=== PATIENT | male | born 1970 | race African-American/Black ===

== ENCOUNTER → 2023-04-30 07:43 | Outpatient (CLI) | payer OTHER, SELFPAY ==
--- NOTE | 2023-04-30 08:01 | CA_ITS ---
APPROVED REPORT EXAM: Comprehensive 2D, Doppler, and color-flow Echocardiogram Environmental Health Officer: Isabel Booker CRT Ht: 5 ft 6 in Wt: 207lbs BSA: 2.03 BP: 124/84 mmHg Indications: Diabetes, Hypertension/HDD 2D Dimensions LVOT 2.09 cm (M/F) 1.5-2.5 LA Volume 63.40 mL LA Volume Index 30.50 mL/m2 (M/F) 16-34 M-Mode Dimensions RVDd 2.45 cm (0.9-2.6) LA Diam 3.43 cm (1.9-4.0) LVDd 5.08 cm (3.5-5.7) Ao Diam 3.73 cm (2.0-3.7) LVDs 3.34 cm (3.5-5.7) IVSd 1.09 cm (0.6-1.1) PWd 1.00 cm (0.6-1.1) EF (Teich) 63.00% FS 34.30% EDV (Teich) 122.70 mL TAPSE 2.66 (<1.7) ESV (Teich) 45.40 mL LV Diastology E Decel Time 177.00 (160-240 msec) E/A Ratio 1.45 MED E' 7.80 (< 7 cm/sec) MED A' 9.70 cm/s E'/MED E' Ratio 14.38 (>14) LAT E' 10.60 (<10 cm/sec) LAT A' 10.70 cm/s E/LAT E' Ratio 10.58 (>14) Aortic Valve AO Peak GR. 4.40 mmHg Mitral Valve MV A Velocity 77.00 (40-130 cm/s) E/A Ratio 1.45 MV Decel. Time 177.00 (160-240 ms) Pulmonary Valve PV Peak Velocity 130.00 (50-150 cm/s) Tricuspid Valve TR P. Velocity 254.00 cm/s RAP Estimate 10.00 mmHg RVSP 35.70 mmHg Left Ventricle The left ventricle is normal size. The left ventricular systolic function is normal. The left ventricular ejection fraction is within the normal range. There is normal left ventricular wall thickness. There is normal LV segmental wall motion. The left ventricular diastolic function is normal. LVEF is 55%. Right Ventricle The right ventricle is normal size. The right ventricular systolic function is normal. Atria The left atrium size is normal. The right atrium size is normal. There is no Doppler evidence of interatrial shunt. Aortic Valve The aortic valve opens well. There is no aortic valvular stenosis. Trace aortic regurgitation. Mitral Valve The mitral valve is normal in structure. No evidence of mitral valve stenosis. Trace mitral regurgitation. Tricuspid Valve The tricuspid valve leaflets are thin and pliable. Mild tricuspid regurgitation. RVSP is 25-30 mmHg. Pulmonic Valve The pulmonary valve is normal in structure. Trace pulmonic regurgitation. Great Vessels The aortic root is normal in size. The ascending aorta is normal in size. IVC is normal in size and collapses >50% with inspiration. Pericardium There is no pericardial effusion. Other Information Study Quality: Adequate Conclusion Normal biventricular systolic function No significant valvular disease Electronically signed by : Jennifer Richard, 05/02/2023 23:41:40
[2023-04-30 08:02] LABS: Microscopic, Urine URINE MICROSCOPIC (MICROSCOPIC)
[2023-04-30 09:21] LABS: Alanine Aminotransferase 28 U/L (12-78); Albumin Level 4.8 g/dl (3.5-5.0); Albumin/Globulin Ratio 1.7 (1.1-1.8); Alkaline Phosphatase 101 U/L (38-126); Anion Gap 14.6 mEq/L (5-15); Aspartate Amino Transferase 34 U/L (17-59); Bilirubin,Total 0.9 mg/dl (0.2-1.3); Blood Urea Nitrogen 14 mg/dl (9-20); Calcium 9.9 mg/dl (8.4-10.2); Carbon Dioxide 26 mmol/L (22.0-30.0); Chloride 106 mmol/L (98-107); Estimated Glomerular Filt Rate 78 ml/min (>60); GFR (African American) 95 ML/MIN (>60); Globulin 2.9 g/dL (1.3-3.2); Glucose 190 mg/dl (74-100); Potassium 4.6 mmoL/L (3.5-5.1); Sodium 142 mmol/L (136-145); Total Protein,Serum 7.7 g/dl (6.3-8.2)
[2023-04-30 09:29] LABS: Appearance,Urine Clear (Clear); Bilirubin,Urine Negative (Negative); Blood, Urine Negative (Negative); Color,Urine Yellow (Yellow); Glucose,Urine (UA) Negative (Negative); Ketones,Urine Negative (Negative); Leukocyte Esterase,Urine Negative (Negative); Nitrate,Urine Negative (Negative); Protein,Urine Negative (Negative); Urobilinogen,Urine 0.2 EU/dl (0.2)
[2023-04-30 09:36] LABS: Bacteria,Urine Trace /lpf; Squamous Epithelial Cell,Urine Occasional #/hpf (0-5); WBC,Urine Occasional #/hpf (0-3)
== END ==
PROVIDERS: Visit Provider Chiropractor
DX: I10 Essential (primary) hypertension (principal); E11.9 Type 2 diabetes mellitus without complications
CPT/HCPCS: 36415; 80053; 81001; 93306